=== PATIENT | male | born 1945 | race Caucasian/White ===

== ENCOUNTER → 2016-08-12 | Outpatient (CLI) | payer OTHER ==
[~2016-08-12] MED LIST: ACET-1257 PO; ASPEC325 PO; CARV6.25 PO; ETOD200C2 PO; LISI-725 PO; NRV5 PO; PRVC20 PO
[2016-08-12 14:49] LABS: BASO % 0.4 %; BASO ABS # 0.03 K/uL (0-0.2); EOS % 2.8 %; HEMATOCRIT 39.5 % (42-52); IG% 0.2 %; LYMPH ABS # 1.02 K/uL (1.2-3.4); MEAN CELL VOLUME 86.6 fL (80-100); MEAN PLATELET VOLUME 9.4 fL (7.4-10.4); NEUT % 78.6 %; PLATELET COUNT 267 K/uL (130-400); RED BLOOD COUNT 4.56 M/uL (4.7-6.1); WHITE BLOOD COUNT 8.48 K/uL (4.8-10.8)
[2016-08-12 14:54] LABS: COMPLETE YES; MEAN CORPUSCULAR HGB CONC 34.7 g/dl (32-36)
[2016-08-12 15:57] LABS: BLOOD UREA NITROGEN 14 mg/dl (7-18); BUN/CREATININE RATIO 14.6 (10-20); CALCIUM 8.5 mg/dl (8.5-10.1); CARBON DIOXIDE 28 mmol/L (21-32); CHLORIDE 98 mmol/L (98-107); CREATININE 0.99 mg/dl (0.60-1.40); GLUCOSE 141 mg/dl (70-99); POTASSIUM 4.3 mmol/L (3.5-5.1); SODIUM 132 mmol/L (136-145)
== END ==
LOC: C.LABCC 14:13
PROVIDERS: ATTEND Internal Medicine
DX: R55 Syncope and collapse (principal)

== ENCOUNTER → 2016-08-20 | Outpatient (CLI) | payer OTHER ==
[2016-08-20 09:33] LABS: BLOOD UREA NITROGEN 16 mg/dl (7-18); BUN/CREATININE RATIO 17.6 (10-20); CARBON DIOXIDE 28 mmol/L (21-32); CHLORIDE 102 mmol/L (98-107); GLUCOSE 85 mg/dl (70-99); POTASSIUM 3.9 mmol/L (3.5-5.1); SODIUM 137 mmol/L (136-145)
[2016-08-20 09:53] LABS: CALCIUM 8.6 mg/dl (8.5-10.1)
== END ==
LOC: C.LABCC 07:59
PROVIDERS: ATTEND Internal Medicine
DX: E87.1 Hypo-osmolality and hyponatremia (principal)

== ENCOUNTER → 2016-09-17 | Outpatient (CLI) | payer OTHER ==
[2016-09-17 12:48] LABS: ALKALINE PHOSPHATASE 70 U/L (45-117); ALT/SGPT 23 U/L (12-78); AST/SGOT 16 U/L (15-37); CHOLESTEROL 152 mg/dl (0-200); CHOLESTEROL/HDL RATIO 2.7; HDL CHOLESTEROL 56 mg/dl; LDL CHOLESTEROL CALCULATED 86 mg/dl; MAGNESIUM 2.3 mg/dl (1.8-2.4); TRIGLYCERIDES 50 mg/dl (0-150); VERY LOW DENSITY LIPOPROT CALC 10 mg/dl
== END ==
LOC: C.LABCC 15:36
PROVIDERS: ATTEND Internal Medicine
DX: I10 Essential (primary) hypertension (principal); I63.9 Cerebral infarction, unspecified; K21.9 Gastro-esophageal reflux disease without esophagitis; E78.5 Hyperlipidemia, unspecified

== ENCOUNTER 2017-06-23 09:28 | Emergency (ER) | payer OTHER ==
[2017-06-23 09:40] VITALS: TEMP 36.5
[2017-06-23 09:49] VITALS: O2SAT 97
[2017-06-23] MEDS ORDERED: SODIUM CHLORIDE 0.9% 1000ML 1,000 ML IV STA (09:49)
--- NOTE | 2017-06-23 10:03 | EMERGENCY ROOM VISIT NOTE ---
History Report prepared by Kye: Keerthi Medel Under the Supervision of: Dr. Francisco Yu D.O. First contact with patient: 09:35 Chief Complaint: CARDIAC ASSESSMENT Stated Complaint: SYNCOPE/ABD PAIN History of Present Illness The patient is a 72 year old male who presents to the Emergency Room with complaints of an episode of syncope occurring just prior to arrival. Per nursing , the patient was at [facility] at [facility] when he had an episode where he became unresponsive, pale, and incontinent of urine. During this episode, the patient's pulse was 46 and his blood pressure was 80/50. Nursing reports the patient did not fall during this episode. The patient has a history of a stroke. The patient is DNR. The patient notes abdominal pain but denies any chest pain. History limited secondary to the patient's altered mental status. Source of History: nursing staff History Limited By: AMS Onset: just prior to arrival Position: other (generalized) Quality: other (syncope) Timing: other (episode) Associated Symptoms: + chest pain, No abdominal pain Review of Systems ROS limited secondary to the patient's AMS. Past Medical & Surgical Medical Problems: (1) Chronic Cholecystitis (2) Congestive Heart Failure Nos (3) Hypertension Nos (4) R PRODUCTION LINE ASSEMBLER CVA, CARDIOMYOPATHY Family History Patient reports no known family medical history. Social History Smoking Status: Former Smoker Alcohol Use: occasionally Drug Use: none Marital Status: Housing Status: lives with family Occupation Status: retired Current/Historical Medications Scheduled Amlodipine (Norvasc), 5 MG PO QAM Aspirin (Aspirin Ec), 325 MG PO QAM Carvedilol (Coreg), 6.25 MG PO BID Etodolac (Etodolac), 200 MG PO BID Lisinopril (Zestril), 20 MG PO BID Omeprazole (Prilosec), 20 MG PO DAILY Polyethylene Glycol 3350 (Miralax), 17 GM PO DAILY Pravastatin (Pravachol ), 20 MG PO QPM Scheduled PRN Acetaminophen (Tylenol), 500 MG PO BID PRN for Pain Allergies Coded Allergies: Penicillins (Verified Allergy, Severe, HIVES, 02/06/16) BEE STING (Verified Allergy, Intermediate, EXTREMITY EDEMA, 02/06/16) Physical Exam Vital Signs Date Time Temp Pulse Resp B/P (MAP) Pulse Ox O2 Delivery O2 Flow Rate FiO2 06/23/17 11:49 62 20 129/77 95 06/23/17 10:58 61 20 132/76 96 Room Air 06/23/17 09:49 97 Room Air 06/23/17 09:40 36.5 55 19 132/83 94 Room Air 06/23/17 09:40 94 Room Air 06/23/17 09:37 54 Physical Exam GENERAL: Patient is awake, alert, and in no acute distress. Patient is resting comfortably and showing no signs of anxiety. Patient answers questions slowly. EYES: The conjunctivae are clear. The pupils are round and reactive. EARS, NOSE, MOUTH AND THROAT: The nose is without any evidence of any deformity. Mucous membranes are dry tongue is midline NECK: The neck is nontender and supple. RESPIRATORY: Normal respiratory effort is noted there is no evidence of wheezing rhonchi or rales CARDIOVASCULAR: Regular rate and rhythm noted there no murmurs rubs or gallops normal S1 normal S2 GASTROINTESTINAL: The abdomen is soft, nondistended, no guarding or rigidity but the patient indicates epigastric pain. MUSCULOSKELETAL/EXTREMITIES: There is no evidence of gross deformity full range of motion is noted in the hips and shoulders SKIN: There is no obvious evidence of any rash. There are no petechiae, pallor or cyanosis noted. NEUROLOGIC: Patient is awake alert and oriented to person but not place, time, or situation. Strength symmetric in both extremities. 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 Lung bases: Minimal basilar opacities, likely atelectasis. Respiratory motion artifact at the lung bases limits evaluation. Normal heart size. Coronary artery calcification. No pericardial or pleural effusion. Liver: Normal morphology. Borderline hepatic steatosis. Biliary: No intrahepatic or extrahepatic biliary ductal dilatation. Gallbladder surgically absent. Pancreas: Normal noncontrast appearance. Spleen: Dysmorphic appearance of the spleen, possibly indicating prior trauma or infarct. Adrenal glands: Normal noncontrast appearance. Kidneys and ureters: Multiple hypodensities in the kidneys, indeterminate but likely cysts. Renal vascular calcification noted. No nephrolithiasis. No hydronephrosis. Ureters grossly normal. Bladder: Incompletely evaluated secondary to underdistention. Pelvic organs: Brachytherapy seeds noted in the prostate. Bowel: Large stool burden in the rectum. Limited diverticulosis of the sigmoid colon. Mild stool burden throughout the remaining colon. The cecum is medialized. No bowel obstruction. Small hiatal hernia. Small duodenal diverticulum suggested along the descending portion. Peritoneal cavity: No free fluid or intraperitoneal gas. Lymph nodes: No gross lymphadenopathy allowing for noncontrast technique. Vasculature: Extensive atherosclerosis of the abdominal aorta with mild ectasia of the infrarenal portion measuring up to 2.6 cm in diameter. Abdominal wall: Normal. Musculoskeletal: Degenerative changes of the spine. Severe osteopenia. Wedging deformity of L1 and to a lesser extent T10. These have slightly progressed since the prior exam. IMPRESSION: 1. Osteopenia with slight progression of compression deformities of L1 and to a lesser extent at T10 since the prior CT from 2014. 2. Medialization of the cecum without evidence of bowel obstruction the configuration is somewhat altered since the prior exam. 3. Large stool burden in the rectum. 4. Posttreatment changes of the prostate. Electronically signed by: Arthur Solomon M.D. CHEST ONE VIEW PORTABLE FINDINGS: Atherosclerosis of the aortic arch. Tortuosity of the thoracic aorta. Cardiac silhouette normal in size. Slight elevation of the right hemidiaphragm. No focal opacity. No large effusion or pneumothorax. Osteopenia may be present. Upper abdomen normal. IMPRESSION: 1. No acute cardiopulmonary disease. Electronically signed by: Arthur Solomon M.D. CT HEAD WITHOUT CONTRAST (CT) FINDINGS: No intra or extra-axial mass lesions are visualized. There is no CT evidence of acute cortical infarction. There is no evidence of midline shift. There is no acute hemorrhage. No calvarial fractures are visualized. There are patchy white matter hypodensities likely on a small vessel basis. There is an old right frontal lobe infarct, and old right occipital lobe infarct. There is a lacunar infarct at the level of the right thalamus/internal capsule junction. This does not appear acute. This was not present on the prior study. There is dilatation of the right lateral ventricle secondary to volume loss. There is no evidence of acute sinusitis IMPRESSION: White matter disease and old right hemispheric infarcts. No acute intracranial findings Electronically signed by: Joe Stinson M.D. Laboratory Results 06/23/17 09:56 Red Blood Count 4.37, Mean Corpuscular Volume 86.0, Mean Corpuscular Hemoglobin 30.4, Mean Corpuscular Hemoglobin Concent 35.4, Mean Platelet Volume 8.3, Neutrophils (%) (Auto) 68.4, Lymphocytes (%) (Auto) 18.7, Monocytes (%) (Auto) 8.3, Eosinophils (%) (Auto) 3.7, Basophils (%) (Auto) 0.7, Neutrophils # (Auto) 4.01, Lymphocytes # (Auto) 1.10, Monocytes # (Auto) 0.49, Eosinophils # (Auto) 0.22, Basophils # (Auto) 0.04 06/23/17 09:56 Test 06/23/17 09:56 White Blood Count 5.87 K/uL (4.8-10.8) Red Blood Count 4.37 M/uL (4.7-6.1) Hemoglobin 13.3 g/dL (14.0-18.0) Hematocrit 37.6 % (42-52) Mean Corpuscular Volume 86.0 fL (80-100) Mean Corpuscular Hemoglobin 30.4 pg (25-34) Mean Corpuscular Hemoglobin Concent 35.4 g/dl (32-36) Platelet Count 226 K/uL (130-400) Mean Platelet Volume 8.3 fL (7.4-10.4) Neutrophils (%) (Auto) 68.4 % Lymphocytes (%) (Auto) 18.7 % Monocytes (%) (Auto) 8.3 % Eosinophils (%) (Auto) 3.7 % Basophils (%) (Auto) 0.7 % Neutrophils # (Auto) 4.01 K/uL (1.4-6.5) Lymphocytes # (Auto) 1.10 K/uL (1.2-3.4) Monocytes # (Auto) 0.49 K/uL (0.11-0.59) Eosinophils # (Auto) 0.22 K/uL (0-0.5) Basophils # (Auto) 0.04 K/uL (0-0.2) RDW Standard Deviation 41.0 fL (36.4-46.3) RDW Coefficient of Variation 13.0 % (11.5-14.5) Immature Granulocyte % (Auto) 0.2 % Immature Granulocyte # (Auto) 0.01 K/uL (0.00-0.02) Prothrombin Time 10.6 SECONDS (9.0-12.0) Prothromb Time International Ratio 1.0 (0.9-1.1) Activated Partial Thromboplast Time 24.1 SECONDS (21.0-31.0) Partial Thromboplastin Ratio 0.9 Anion Gap 7.0 mmol/L (3-11) Estimated GFR () 87.2 Estimated GFR (Non- 75.2 BUN/Creatinine Ratio 13.9 (10-20) Calcium Level 8.3 mg/dl (8.5-10.1) Magnesium Level 2.1 mg/dl (1.8-2.4) Total Bilirubin 0.5 mg/dl (0.2-1) Direct Bilirubin 0.2 mg/dl (0-0.2) Aspartate Amino Transf (AST/SGOT) 10 U/L (15-37) Alanine Aminotransferase (ALT/SGPT) 18 U/L (12-78) Alkaline Phosphatase 70 U/L (45-117) Total Creatine Kinase 59 U/L (39-308) Creatine Kinase MB 1.3 ng/ml (0.5-3.6) Creatine Kinase MB Ratio 2.2 (0-3.0) Troponin I 0.024 ng/ml (0-0.045) Total Protein 6.2 gm/dl (6.4-8.2) Albumin 3.0 gm/dl (3.4-5.0) Thyroid Stimulating Hormone (TSH) 2.560 uIu/ml (0.300-4.500) Laboratory results per my review. Medications Administered Medications (Trade) Dose Ordered Sig/Carla Route Start Time Stop Time Status Last Admin Dose Admin Sodium Chloride 1,000 ml @ 999 mls/hr Q1H1M STAT IV 06/23/17 09:49 06/23/17 10:49 DC 06/23/17 10:10 999 MLS/HR ECG Per My Interpretation Indication: altered mental status, syncope Rate (beats per minute): 52 Rhythm: sinus bradycardia Findings: RBBB, no ectopy Comparison ECG Date: 02/08/16 Change: Decreased rate otherwise no change ED Course 0943: The patient was evaluated in room A3. A complete history and physical examination were performed. 0949: Ordered NSS 1,000 ml @ 999 mls/hr IV 1059: Upon reevaluation, the patient is resting comfortably. I discussed the results and treatment plan with him. He verbalized agreement of the treatment plan. The patient was discharged home. Medical Decision Differential diagnosis: Etiologies such as vasovagal event, infection, hypoglycemia, electrolyte abnormalities, cardiac sources, intracerebral event, toxicologic, neurologic, as well as others were entertained. Nursing notes reviewed. The patient is a 72-year-old male who presented to the emergency department after a syncopal episode. The patient's history is somewhat limited because of underlying dementia. The patient indicated he had some abdominal pain at the half-way and on my exam he does have some reproducible abdominal pain. The patient did not have an acute surgical abdomen. The patient's CAT scan revealed significant constipation. It is possible this is what was causing the patient's pain. The patient was treated with IV fluids in the emergency department. I feel he is able to be discharged back to the half-way. I recommended that he start a bowel regimen. Certainly if he does not have good results within the next 48 hours they should consider doing an enema and I put this on his discharge instructions. Otherwise I feel he could send the patient back to the emergency department immediately if symptoms change worsen or the need arises. Medication Reconcilliation Current Medication List: was personally reviewed by me Blood Pressure Screening Patient's blood pressure: Normal blood pressure Impression Primary Impression: Hyponatremia Additional Impressions: Syncope Constipation Scribe Attestation The scribe's documentation has been prepared under my direction and personally reviewed by me in its entirety. I confirm that the note above accurately reflects all work, treatment, procedures, and medical decision making performed by me. Departure Information Dispostion Home / Self-Care Prescriptions Polyethylene Glycol 3350 (MIRALAX) 1 Pow Pow 17 GM PO DAILY, #527 GM Prov: Francisco Yu DO 06/23/17 Referrals [facility] (PCP) Forms IMPORTANT VISIT INFORMATION Patient Instructions ED Constipation, ED Hyponatremia, My [facility], Syncope Additional Instructions Continue all medications as prescribed. Follow-up with the family doctor this week. If symptoms do not improve with the MiraLAX I would recommend an enema within the next 24-48 hours. Laboratory studies will also need to be rechecked because the sodium was found to be low in the emergency department today. Problem Qualifiers Additional Impressions: Syncope Syncope type: unspecified Qualified Codes: R55 - Syncope and collapse Constipation Constipation type: unspecified constipation type Qualified Codes: K59.00 - Constipation, unspecified
[2017-06-23 10:09] LABS: BASO % 0.7 %; BASO ABS # 0.04 K/uL (0-0.2); EOS % 3.7 %; EOS ABS # 0.22 K/uL (0-0.5); HEMATOCRIT 37.6 % (42-52); HEMOGLOBIN 13.3 g/dL (14.0-18.0); IG# 0.01 K/uL (0.00-0.02); LYMPH % 18.7 %; MEAN CORPUSCULAR HEMOGLOBIN 30.4 pg (25-34); MEAN CORPUSCULAR HGB CONC 35.4 g/dl (32-36); MEAN PLATELET VOLUME 8.3 fL (7.4-10.4); MONO % 8.3 %; MONO ABS # 0.49 K/uL (0.11-0.59); NEUT % 68.4 %; NEUT ABS # 4.01 K/uL (1.4-6.5); PLATELET COUNT 226 K/uL (130-400); WHITE BLOOD COUNT 5.87 K/uL (4.8-10.8)
[2017-06-23 10:18] LABS: PTT PATIENT 24.1 SECONDS (21.0-31.0)
--- NOTE | 2017-06-23 10:19 | DIAGNOSTIC IMAGING REPORT ---
CHEST ONE VIEW PORTABLE CLINICAL HISTORY: 72 years-old Male presenting with EVALUATE ALTERED MENTAL STATUS/WEAKNESS. TECHNIQUE: Portable upright AP view of the chest was obtained. COMPARISON: 02/06/2016. FINDINGS: Atherosclerosis of the aortic arch. Tortuosity of the thoracic aorta. Cardiac silhouette normal in size. Slight elevation of the right hemidiaphragm. No focal opacity. No large effusion or pneumothorax. Osteopenia may be present. Upper abdomen normal. IMPRESSION: 1. No acute cardiopulmonary disease. Electronically signed by: Arthur Solomon M.D. 06/23/2017 10:18 AM Dictated Date/Time: 06/23/2017 10:17 AM
[2017-06-23 10:28] LABS: ALT/SGPT 18 U/L (12-78); AST/SGOT 10 U/L (15-37); BLOOD UREA NITROGEN 14 mg/dl (7-18); CALCIUM 8.3 mg/dl (8.5-10.1); CARBON DIOXIDE 27 mmol/L (21-32); CREATININE 0.99 mg/dl (0.60-1.40); GLUCOSE 111 mg/dl (70-99); POTASSIUM 4.2 mmol/L (3.5-5.1); SODIUM 129 mmol/L (136-145)
--- NOTE | 2017-06-23 10:30 | DIAGNOSTIC IMAGING REPORT ---
CT HEAD WITHOUT CONTRAST (CT) CLINICAL HISTORY: syncope COMPARISON STUDY: 02/06/2016 TECHNIQUE: Axial CT of the brain is performed from the vertex to the skull base. IV contrast was not administered for this examination. A dose lowering technique was utilized adhering to the principles of ALARA. CT DOSE: FINDINGS: No intra or extra-axial mass lesions are visualized. There is no CT evidence of acute cortical infarction. There is no evidence of midline shift. There is no acute hemorrhage. No calvarial fractures are visualized. There are patchy white matter hypodensities likely on a small vessel basis. There is an old right frontal lobe infarct, and old right occipital lobe infarct. There is a lacunar infarct at the level of the right thalamus/internal capsule junction. This does not appear acute. This was not present on the prior study. There is dilatation of the right lateral ventricle secondary to volume loss. There is no evidence of acute sinusitis IMPRESSION: White matter disease and old right hemispheric infarcts. No acute intracranial findings Electronically signed by: Joe Stinson M.D. 06/23/2017 10:28 AM Dictated Date/Time: 06/23/2017 10:26 AM
[2017-06-23 10:39] LABS: ALKALINE PHOSPHATASE 70 U/L (45-117); CKMB 1.3 ng/ml (0.5-3.6); TOTAL PROTEIN 6.2 gm/dl (6.4-8.2)
--- NOTE | 2017-06-23 10:45 | DIAGNOSTIC IMAGING REPORT ---
ABD/PELVIS NO IV OR ORAL CONT CLINICAL HISTORY: 72 years-old Male presenting with abd pain, right side. TECHNIQUE: Multidetector CT of the abdomen and pelvis was performed without the use of intravenous contrast. IV contrast: None. A dose lowering technique was used consistent with the principles of ALARA (as low as reasonably achievable). COMPARISON: None. CT DOSE (mGy.cm): The estimated cumulative dose is 1148.06 mGy.cm. 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 Lung bases: Minimal basilar opacities, likely atelectasis. Respiratory motion artifact at the lung bases limits evaluation. Normal heart size. Coronary artery calcification. No pericardial or pleural effusion. Liver: Normal morphology. Borderline hepatic steatosis. Biliary: No intrahepatic or extrahepatic biliary ductal dilatation. Gallbladder surgically absent. Pancreas: Normal noncontrast appearance. Spleen: Dysmorphic appearance of the spleen, possibly indicating prior trauma or infarct. Adrenal glands: Normal noncontrast appearance. Kidneys and ureters: Multiple hypodensities in the kidneys, indeterminate but likely cysts. Renal vascular calcification noted. No nephrolithiasis. No hydronephrosis. Ureters grossly normal. Bladder: Incompletely evaluated secondary to underdistention. Pelvic organs: Brachytherapy seeds noted in the prostate. Bowel: Large stool burden in the rectum. Limited diverticulosis of the sigmoid colon. Mild stool burden throughout the remaining colon. The cecum is medialized. No bowel obstruction. Small hiatal hernia. Small duodenal diverticulum suggested along the descending portion. Peritoneal cavity: No free fluid or intraperitoneal gas. Lymph nodes: No gross lymphadenopathy allowing for noncontrast technique. Vasculature: Extensive atherosclerosis of the abdominal aorta with mild ectasia of the infrarenal portion measuring up to 2.6 cm in diameter. Abdominal wall: Normal. Musculoskeletal: Degenerative changes of the spine. Severe osteopenia. Wedging deformity of L1 and to a lesser extent T10. These have slightly progressed since the prior exam. IMPRESSION: 1. Osteopenia with slight progression of compression deformities of L1 and to a lesser extent at T10 since the prior CT from 2014. 2. Medialization of the cecum without evidence of bowel obstruction the configuration is somewhat altered since the prior exam. 3. Large stool burden in the rectum. 4. Posttreatment changes of the prostate. Electronically signed by: Arthur Solomon M.D. 06/23/2017 10:43 AM Dictated Date/Time: 06/23/2017 10:35 AM
[2017-06-23] MEDS ORDERED: POLY335019 PO (10:51)
[2017-06-23] MEDS ORDERED: PRLSR20 PO (11:08)
[2017-06-23] MEDS ORDERED: AMLO-110 PO (11:08)
[2017-06-23] MEDS ORDERED: LISI-725 PO (11:08)
[2017-06-23] MEDS ORDERED: ACET-1256 PO (11:08)
[2017-06-23] MEDS ORDERED: ASPI325T39 PO (11:08)
[2017-06-23] MEDS ORDERED: CARV6.252 PO (11:08)
[2017-06-23] MEDS ORDERED: ETOD200C2 PO (11:08)
[2017-06-23] MEDS ORDERED: PRAV20TA PO (11:08)
[2017-06-23 11:49] VITALS: BP 129/77; PULSE 62; O2SAT 95
== END 2017-06-23 11:51 | disposition home or self-care (01) ==
LOC: EDBD 09:28 → C.EDA 09:30
DX: R55 Syncope and collapse (principal); E87.1 Hypo-osmolality and hyponatremia; K59.00 Constipation, unspecified; I50.9 Heart failure, unspecified; I11.0 Hypertensive heart disease with heart failure; Z86.73 Personal history of transient ischemic attack (TIA), and cerebral infarction without residual deficits; K81.1 Chronic cholecystitis; Z87.891 Personal history of nicotine dependence; Z79.82 Long term (current) use of aspirin; Z79.899 Other long term (current) drug therapy

== ENCOUNTER → 2017-07-01 | Outpatient (CLI) | payer OTHER ==
[~2017-07-01] MED LIST changes: +ACET-1256 PO; -ACET-1257 PO; +AMLO-110 PO; -ASPEC325 PO; +ASPI325T39 PO; -CARV6.25 PO; +CARV6.252 PO; -NRV5 PO; +POLY335019 PO; +PRAV20TA PO; +PRLSR20 PO; -PRVC20 PO
[2017-07-01 08:43] LABS: BLOOD UREA NITROGEN 14 mg/dl (7-18); CALCIUM 8.3 mg/dl (8.5-10.1); CARBON DIOXIDE 27 mmol/L (21-32); CREATININE 0.88 mg/dl (0.60-1.40); GLUCOSE 89 mg/dl (70-99); POTASSIUM 3.8 mmol/L (3.5-5.1); SODIUM 130 mmol/L (136-145)
== END | disposition home or self-care (01) ==
LOC: C.LABCC 08:15
PROVIDERS: ATTEND Internal Medicine
DX: E87.1 Hypo-osmolality and hyponatremia (principal)

== ENCOUNTER → 2017-07-03 | Outpatient (CLI) | payer OTHER | END | disposition home or self-care (01) | LOC: C.LABCC 08:01 | PROVIDERS: ATTEND Internal Medicine | DX: E87.1 Hypo-osmolality and hyponatremia (principal) ==

== ENCOUNTER → 2017-07-08 | Outpatient (CLI) | payer OTHER | LOC: C.LABCC 09:40 | PROVIDERS: ATTEND Internal Medicine | DX: E87.1 Hypo-osmolality and hyponatremia (principal) ==

== ENCOUNTER → 2017-07-13 | Outpatient (CLI) | payer OTHER ==
[2017-07-13 09:04] LABS: BLOOD UREA NITROGEN 17 mg/dl (7-18); CALCIUM 8.7 mg/dl (8.5-10.1); CARBON DIOXIDE 26 mmol/L (21-32); CREATININE 0.87 mg/dl (0.60-1.40); GLUCOSE 75 mg/dl (70-99); POTASSIUM 3.7 mmol/L (3.5-5.1); SODIUM 135 mmol/L (136-145)
== END ==
LOC: C.LABCC 08:24
PROVIDERS: ATTEND Internal Medicine
DX: E87.1 Hypo-osmolality and hyponatremia (principal)

== ENCOUNTER → 2017-07-28 | Outpatient (CLI) | payer OTHER ==
[2017-07-28 08:42] LABS: BLOOD UREA NITROGEN 21 mg/dl (7-18); CALCIUM 8.6 mg/dl (8.5-10.1); CARBON DIOXIDE 26 mmol/L (21-32); CREATININE 0.88 mg/dl (0.60-1.40); GLUCOSE 89 mg/dl (70-99); POTASSIUM 3.8 mmol/L (3.5-5.1); SODIUM 139 mmol/L (136-145)
== END ==
LOC: C.LABCC 07:41
PROVIDERS: ATTEND Internal Medicine
DX: E87.1 Hypo-osmolality and hyponatremia (principal)

== ENCOUNTER → 2017-12-14 | Outpatient (CLI) | payer OTHER ==
[~2017-12-14] MED LIST changes: -AMLO-110 PO; +AMLO5TAB3 PO; +LISI-461 PO; +RANI150T85 PO
[2017-12-14 08:37] LABS: BASO % 0.5 %; BASO ABS # 0.03 K/uL (0-0.2); EOS % 2.8 %; EOS ABS # 0.17 K/uL (0-0.5); HEMATOCRIT 33.5 % (42-52); IG# 0.01 K/uL (0.00-0.02); LYMPH % 23.4 %; LYMPH ABS # 1.44 K/uL (1.2-3.4); MEAN CELL VOLUME 87.7 fL (80-100); MEAN CORPUSCULAR HEMOGLOBIN 28.8 pg (25-34); MEAN CORPUSCULAR HGB CONC 32.8 g/dl (32-36); MEAN PLATELET VOLUME 10.7 fL (7.4-10.4); MONO % 10.6 %; MONO ABS # 0.65 K/uL (0.11-0.59); NEUT % 62.5 %; NEUT ABS # 3.86 K/uL (1.4-6.5); PLATELET COUNT 224 K/uL (130-400); RED CELL DISTRIBUTION WIDTH CV 13.8 % (11.5-14.5); RED CELL DISTRIBUTION WIDTH SD 44.2 fL (36.4-46.3); WHITE BLOOD COUNT 6.16 K/uL (4.8-10.8)
[2017-12-14 08:57] LABS: BLOOD UREA NITROGEN 30 mg/dl (7-18); CALCIUM 8.6 mg/dl (8.5-10.1); CARBON DIOXIDE 22 mmol/L (21-32); CREATININE 1.23 mg/dl (0.60-1.40); GLUCOSE 100 mg/dl (70-99); POTASSIUM 3.7 mmol/L (3.5-5.1); SODIUM 140 mmol/L (136-145)
== END ==
LOC: C.LABCC 08:12
PROVIDERS: ATTEND Internal Medicine
DX: R42 Dizziness and giddiness (principal); W19.XXXA Unspecified fall, initial encounter

== ENCOUNTER → 2017-12-14 | Outpatient (CLI) | payer OTHER | LOC: C.LABCC 17:17 | PROVIDERS: ATTEND Internal Medicine | DX: R42 Dizziness and giddiness (principal); W19.XXXA Unspecified fall, initial encounter ==